=== PATIENT | male | born 1950 | race Caucasian/White ===

== ENCOUNTER 2022-12-31 05:53 | Inpatient (IN) ==
--- NOTE | 2022-12-23 12:53 | Anesthesiology Consultation ---
Date of Service December 23, 2022 Assessment & Plan (1) Encounter for pre-operative examination: Chart Review Chart Review: Acceptable Risk for Surgery and Patient NOT seen in Pre Admission Testing Consults Requested none History Surgery Operation Date: 12/31/22 08:20 Proposed Procedures p Robotic Laparoscopic Assisted Parital Nephrectomy, Possible Radical - Right - Theo Rossi DO Height/Weight Height: 5 ft 11 in Weight: 81.647 kg Allergies Allergy/AdvReac Type Severity Reaction Status Date / Time No Known Allergies Allergy Verified 12/23/22 11:10 Medications Home Medications Medication Instructions Recorded Confirmed Last Taken ascorbic acid (vitamin C) 500 mg 500 mg PO QAM 12/23/22 12/23/22 Unknown tablet (Vitamin C) fluvoxamine 50 mg tablet 50 mg PO QAM 12/23/22 12/23/22 Unknown lorazepam 0.5 mg tablet 0.5 mg PO TID PRN Anxiety 12/23/22 12/23/22 Unknown multivitamin 1 tab PO QAM 12/23/22 12/23/22 Unknown rosuvastatin 20 mg sprinkle capsule 20 mg PO QAM 12/23/22 12/23/22 Unknown Past Medical History Medical History Anxiety Hearing loss in right ear Hyperlipidemia OCD (obsessive compulsive disorder) Wears hearing aid in left ear Past Surgical History Surgical History History of cardiac cath 20 yr ago- "strange feeling in chest", "30% blockage that did not require intervention" at [place] by Dr. Castillo, started statin, no issues since History of cataract surgery bilateral History of colonoscopy History of herniorrhaphy left inguinal History of tonsillectomy S/P excision of acoustic neuroma 2019, [facility], lost hearing in R ear S/P vasectomy Social History Smoking Status: Never smoker Do You Dip or Chew Tobacco: No Hx Alcohol Use: No Hx Substance Use: No substance use type: does not use Testing Electrocardiogram Date: 11/26/22 Findings: + NSR @ (bradycardia)
[2022-12-31] MEDS ORDERED: ceFAZolin 2000MG 2,000 MG/15 ML SYR IV SCH (06:00)
[2022-12-31] MEDS ORDERED: LACTATED RINGER'S 1,000 ML IV SCH (06:00)
--- NOTE | 2022-12-31 06:42 | History & Physical Bridge Note ---
Date of Service December 31, 2022 History & Physical Bridge Note I have examined the patient, reviewed the History & Physical and in the interval since the performance of the History & Physical I have noted the following changes of clinical significance: no changes noted
[2022-12-31] MEDS ORDERED: ATROPINE SULFATE 0.1 MG/ML 10ML SYR IV PRN (06:51)
[2022-12-31] MEDS ORDERED: ePHEDrine sulfate 50 MG/ML AMP IV PRN (06:51)
[2022-12-31] MEDS ORDERED: LIDOCAINE 2% 2 ML VIAL/AMP(20MG/ML) INFIL ONE (07:01)
[2022-12-31] MEDS ORDERED: PROPOFOL IV EMULSION 10 MG/ML 20 ML VIAL IV ONE (07:01)
[2022-12-31] MEDS ORDERED: SUGAMMADEX SODIUM 200 MG/2 ML VIAL IV ONE (07:01)
[2022-12-31] MEDS ORDERED: ROCURONIUM BROMIDE 10 MG/ML 5 ML VIAL IV ONE (07:01)
[2022-12-31] MEDS ORDERED: MIDAZOLAM HCL 1 MG/ML 2ML VIAL ONE (07:01)
[2022-12-31] MEDS ORDERED: DEXAMETHASONE SOD INJ 4 MG/ML VIAL ONE (07:01)
[2022-12-31] MEDS ORDERED: ONDANSETRON INJ 2 MG/ML 2 ML VIAL ONE (07:01)
[2022-12-31] MEDS ORDERED: fentaNYL citrate PF 100 MCG/2 ML VIAL ONE (07:01)
[2022-12-31] MEDS ORDERED: BUPIVACAINE 0.5 % 5 MG/1 ML MPF 30ML VIAL ONE (07:26)
[2022-12-31] MEDS ORDERED: KETAMINE 50 MG/5 ML SYRINGE ONE (07:37)
[2022-12-31] MEDS ORDERED: TISSEEL FIBRIN SEALANT 10ML TOP ONE (08:50)
[2022-12-31] MEDS ORDERED: SURGICEL ABSORB HEMOSTAT 2IN X 14IN TOP ONE (08:50)
[2022-12-31] MEDS ORDERED: FLOSEAL HEMOSTATIC MATRIX 10ML TOP ONE (08:50)
--- NOTE | 2022-12-31 10:22 | Operative Report ---
PG Post Operative Report Pre & Post Diagnosis Operation Date: 12/31/22 07:30 Pre-Op Diagnosis: Right Renal Mass Post-Op Diagnosis: Right Renal Mass I identified the patient and participated in the time-out.: Yes Procedure Operation Date: 12/31/22 07:30 Actual Procedures p Robotic Assisted Laparoscopic Right Nephrectomy - Theo Rossi DO Surgeon Theo Rossi, II, DO Acid Operator TAMMY Chapman Estimated Blood Loss 100 Findings Consistent with Post-Op Diagnosis Moderate size tumor of the renal pelvis/renal mass. Numerous accessory vessels with tumor in close proximity to vessels. Specimens Right Radical Kidney Drains 18 Fr Uriarte Anesthesia Type General Complications none Disposition Disposition: Recovery Room Indications Patient with right renal mass suspicious for malignancy. Risks and benefits discussed at length. Description of Procedure The patient was brought to the operative suite and placed under general endotracheal intubation anesthesia in the supine position. The patient was transferred to lateral position with the right flank exposed. The patient was placed into a flex'ed position and then placed into mild reverse Trendelenberg. At this point, the patient prepped and draped in the usual sterile fashion and a timeout was completed. Preoperative weight based antibiotics had been given. SIL's and SCD's were placed on the patient's lower extremities. A catheter was placed by nursing using sterile technique. With the time out completed the patient was flexed and the skin was marked. The port site was anesthetized. A small incision was made into the skin and subcutaneous tissues. A Varess needle was selected and placed. The needle was easily moved and it was irrigated and aspirated without any issues or concerns for placement. Insufflation commenced. The 8 mm camera port was placed. The abdominal cavity was further insufflated. The laparoscopic camera was placed and the abdominal cavity inspected. No concerning features were noted. At this point, the skin was marked for port placement and 8mm working ports were placed. The skin was anesthetized down to fascia and an approx 1cm incision was made to place the 2 x 8mm ports and the 1 x 12 mm port. One 12 mm assistant manager/embalmer ports were also placed in similar fashion under direct visualization. The robot was positioned and docked. The camera was placed and all trocars were positioned under direct visualization. Mary Chapman was integral in port placement, camera utilization, and docking procedure. She remained in sterile attire and then proceeded to assist the remainder of the case. The colon was mobilized medially to expose the retroperitoneum and the area assessed. Adhesions were freed to allow mobilization. A small amount of further adhesions were noted from the colon and were freed. These were dissected with blunt technique. Cautery was used to assist dissection and control bleeding. The retroperitoneal fat was assessed. Starting distally the retroperitoneum was dissected and care was taken to dissect down near the IVC. The gonadal vein and ureter were identified. This was then followed superiorly. Dissection stayed toward the midline along the IVC and the ureter and gonadal vein were followed up towards the renal hilum. The dissection was followed to the renal pelvis. The Renal Vein was identified and exposed. Posteriorly and inferiorly a number of accessory/additional small vessels were noted going to the hilum. hemolock clips were used for larger vessels. Dissection was taken further superior. The Renal Artery and Vein were then cleaned and exposed. The tumor was identified within the hilum and had very close proximity to the vessels and structures. Numerous small vessels appeared to enter the mass directly. The perirenal fat near the mass was thickened and edematous. The mass and surrounding tissues were assessed. Due to location and the proximity to the vessels the mass did not appear to be amendable to partial nephrectomy. At this point it was decided to remove the entire kidney to allow complete control of the mass. The kidney was then further mobilized. The Vessels were assessed a final time. The Laparoscopic stapling device was selected with two vascular loads. The artery followed by the vein were ligated, stapled, and lysed. The stumps were assessed and no bleeding or major injury or concern. The kidney was then completely freed and mobilized. The lateral and superior connects were dissected. The kidney was completely freed. An additional staple load was then used to cut and staple the ureter and the inferior connections. Surgicel hemostatic agent sheets were placed over the vessels and on the wound bed. Hemostatic agents Tisseel and Floseal were also placed. Hemostatic agent was also placed on the vessels. No major bleeding or other issues. The entire dissection space was inspected one final time. No bleeding or injuries or areas of concern were noted. No tumor or other concerning features were noted. At this point, the robot was undocked and moved away from the patient. The port sites were all assessed laparoscopically. The assistant manager/embalmer 12 mm port site was closed with the Luis-Shepherd device and were closed with Vicryl suture. The other ports were assessed and no issues observed. The inferior robotic port was opened further in the right lower quadrant exposing fascia which was then opened in order to removed the entire kidney en bloc. The abdomen was inspected a final time. A 2-0 Vicryl suture was used to close the peritoneum and posterior sheath. A 1-0 PDS suture was used to close fascia. The skin at each site was closed with kevin. The area was cleaned and bandages placed on each incision. The patient was cleaned and bandaged. The patient was moved back into the supine position The patient was cleaned, aroused from anesthesia, and transferred to the pacu in stable condition having tolerated the procedure well with no complications. I was present and participated in all aspects of the procedure. TAMMY Cerrato was critical in the portions as mentioned above. I attest to the content of the Intraoperative Record and any orders documented therein. Any exceptions are noted below.
[2022-12-31] MEDS: HYDROmorphone INJ 2 MG/ML SYR/VIAL IV PRN ×4 (10:40→11:02)
--- NOTE | 2022-12-31 10:40 | XRay Report ---
INTRAOPERATIVE LEFT LATERAL DECUBITUS RADIOGRAPH CLINICAL HISTORY: INSTRUMENT COUNT COMPARISON STUDY: Renal ultrasound December 08, 2022. FINDINGS: No unexpected radiopaque foreign bodies are identified following right nephrectomy. Please note that the entire abdomen was not included on this exam however the operative bed was imaged. Extr aluminal gas is noted, as expected. IMPRESSION: No unexpected radiopaque foreign bodies within the operative bed. ACT 112: Negative or not required by law. Electronically signed by: Ady Dejesus M.D. 12/31/2022 10:38 AM
[2022-12-31 10:52] LABS: Basophils # (auto) 0.02 K/uL (0.00-0.20); Basophils % (auto) 0.2 %; Eosinophils # (auto) 0.06 K/uL (0.00-0.50); Eosinophils % (auto) 0.7 %; Hemoglobin 12.7 g/dl (14.0-18.0); Immature Granulocytes # (auto) 0.05 K/uL (0.01-0.20); Immature Granulocytes % (auto) 0.6 %; Lymphocytes # (auto) 0.64 K/uL (1.20-3.40); Lymphocytes % (auto) 7.7 %; Mean Corpuscular Hemoglobin 32.4 pg (25.0-34.0); Mean Corpuscular Hgb Conc 34.3 g/dL (32.0-36.0); Mean Corpuscular Volume 94.4 fL (80.0-100.0); Monocytes # (auto) 0.15 K/uL (0.11-0.59); Monocytes % (auto) 1.8 %; Neutrophils # (auto) 7.37 K/uL (1.40-6.50); Platelet Count 148 K/uL (130-400); RDW Coefficient of Variation 11.8 % (11.5-14.5); RDW Standard Deviation 40.2 fL (36.4-46.3); Red Blood Count 3.92 M/uL (4.70-6.10); White Blood Count 8.29 K/ul (4.8-10.8)
--- NOTE | 2022-12-31 11:04 | Anesthesiology Progress Note ---
Date of Service December 31, 2022 Anesthesia Post Procedure Vital Signs Vital Signs: Temp Pulse Resp BP Pulse Ox O2 Del Method O2 Flow Rate 12/31/22 10:55 62 12 157/87 H 98 Nasal Cannula 3 12/31/22 10:45 69 12 145/84 H 98 Nasal Cannula 3 12/31/22 10:35 73 12 143/86 H 100 Oxymask 10 12/31/22 10:25 73 16 166/82 H 100 Oxymask 10 12/31/22 10:19 36.0 C L 75 18 163/88 H 100 Oxymask 10 12/31/22 06:29 36.8 C 66 20 155/92 H 98 Room Air Pain Intensity Abdomen: Pain Intensity: 6 Transfer of Care Handoff Completed per policy Notes Mental Status: alert / awake / arousable Patient Amnestic to Procedure: Yes Nausea / Vomiting: adequately controlled Pain: adequately controlled Airway Patency, RR, SpO2: stable & adequate BP & HR: stable & adequate Hydration State: stable & adequate Anesthetic Complications: no major complications apparent and Pt Satisfied with anesthetic care
[2022-12-31 11:16] LABS: BUN Creatinine Ratio 11.2 (10-20); Calcium 8.4 mg/dl (8.6-10.3); Creatinine Clr Calc Pharmacy 61.3 ml/min; Est GFR (African American) 72.5 ml/min; Est GFR (Non-African American) 62.6 ml/min; Potassium 4.2 mmol/L (3.5-5.1)
[2022-12-31] MEDS ORDERED: MoRPHine SULFATE 2 MG/ML CARP IV PRN (12:27)
[2022-12-31] MEDS ORDERED: LORazepam 0.5 MG TAB PO PRN (12:27)
[2022-12-31] MEDS ORDERED: MoRPHine SULFATE 4 MG/ML 1 ML CARP\\VIAL IV PRN (12:27)
[2022-12-31] MEDS ORDERED: ONDANSETRON INJ 2 MG/ML 2 ML VIAL IV PRN (12:27)
[2022-12-31] MEDS ORDERED: oxyCODONE HCL IR 5 MG TAB (IMMEDIATE RELEASE) PO PRN ×2 (12:27)
[2022-12-31] MEDS: LACTATED RINGER'S 1,000 ML IV SCH ×2 (13:03→22:41)
[2022-12-31] MEDS: ACETAMINOPHEN 325 MG TAB PO PRN ×2 (14:43→21:03)
[2022-12-31] MEDS: ceFAZolin 2000MG 2,000 MG/15 ML SYR IV SCH ×2 (15:47→23:42)
[2022-12-31] MEDS: DOCUSATE SODIUM 100 MG CAP PO SCH (21:04)
[2022-12-31] MEDS: HEPARIN SOD 5,000 UNIT/0.5 ML VIAL SQ SCH (21:05)
[2023-01-01] MEDS: ACETAMINOPHEN 325 MG TAB PO PRN ×3 (02:57→16:03)
--- NOTE | 2023-01-01 08:47 | Urology Progress Note ---
Date of Service January 01, 2023 Assessment & Plan (1) Renal mass: Plan - POD #1 s/p Robotic Assisted Laparoscopic Right Nephrectomyfor possible renal malignancy. - Feeling well, progressing as expected. - Afebrile, hemodynamically stable. - Labs reviewed -WBC 13.50, hemoglobin 12.1, creatinine up to 1.68 as expected s/p nephrectomy. - Tolerating clears. - Minimal pain, managing with Tylenol. - Discontinue IV fluids, encourage hydration. - Remove Uriarte catheter and monitor for void. - Encourage ambulation. - Advance diet as tolerated. - Continue supportive care and pain management. - Anticipate discharge to home later today or tomorrow pending patient progression. Plan of care discussed with Dr. Rossi. Admission and Anticipated Discharge Date Admission Date: December 31, 2022 Subjective Patient examined at bedside this AM. Awake, resting in bed on arrival. No acute distress. No acute issues overnight. Uriarte intact, draining clear yellow urine. Reports minimal pain, managing with Tylenol. Incisions appropriate. Tolerating clears. He does report feeling a little bloated this morning, no nausea or vomiting. No fevers or chills. Some belching, no flatus. Ambulated yesterday without issue. Review of Systems Constitutional: as per Subjective / HPI Gastrointestinal: as per Subjective / HPI Genitourinary: + as per Subjective / HPI Physical Exam Constitutional: well developed and well nourished; no acute distress Respiratory: normal respiratory effort; no respiratory distress and no labored breathing Gastrointestinal (Abdomen): Percussion/Palpation: abdomen soft; abdomen nontender Incisions appropriate, kevin intact. Musculoskeletal: Head/Neck/Chest: normocephalic Skin: No visible rashes or lesions to exposed skin areas Neurologic: moves all extremities and awake Psychiatric: A+Ox3, euthymic affect Genitourinary: Uriarte intact, urine is clear yellow Results & Data Vital Signs (Past 12 Hours) Vital Signs Temp Pulse Resp BP Pulse Ox O2 Del Method 01/01/23 07:15 36.7 C 73 16 164/88 H 96 Room Air 01/01/23 04:00 36.7 C 76 18 162/79 H 96 Room Air 12/31/22 21:00 36.7 C 72 18 165/95 H 96 Room Air PG Care Time/CCT Total # of Minutes Spent Total Time Spent with Patient: Total time spent is greater than 50% in coordination of care (as documented) at patient's floor/unit and/or counseling patient: Coding Level of Care Code None Diagnoses Renal mass N28.89
[2023-01-01 08:53] LABS: Basophils # (auto) 0.01 K/uL (0.00-0.20); Basophils % (auto) 0.1 %; Hematocrit (blood only) 34.9 % (42.0-52.0); Hemoglobin 12.1 g/dl (14.0-18.0); Immature Granulocytes # (auto) 0.11 K/uL (0.01-0.20); Immature Granulocytes % (auto) 0.8 %; Lymphocytes # (auto) 0.61 K/uL (1.20-3.40); Lymphocytes % (auto) 4.5 %; Mean Corpuscular Hemoglobin 32.2 pg (25.0-34.0); Mean Corpuscular Hgb Conc 34.7 g/dL (32.0-36.0); Mean Corpuscular Volume 92.8 fL (80.0-100.0); Mean Platelet Volume 10.3 fL (9.4-12.4); Monocytes # (auto) 1.09 K/uL (0.11-0.59); Monocytes % (auto) 8.1 %; Neutrophils # (auto) 11.68 K/uL (1.40-6.50); Neutrophils % (auto) 86.5 %; Platelet Count 162 K/uL (130-400); Red Blood Count 3.76 M/uL (4.70-6.10)
[2023-01-01] MEDS ORDERED: fluvoxaMINE MALEATE 50 MG TAB PO SCH (09:00)
[2023-01-01] MEDS ORDERED: ROSUVASTATIN CALCIUM 20 MG TAB PO SCH (09:00)
[2023-01-01 09:20] LABS: BUN Creatinine Ratio 13.1 (10-20); Creatinine Clr Calc Pharmacy 42.3 ml/min; Est GFR (African American) 46.3 ml/min; Potassium 4.9 mmol/L (3.5-5.1)
[2023-01-01] MEDS: DOCUSATE SODIUM 100 MG CAP PO SCH (09:36)
[2023-01-01] MEDS: HEPARIN SOD 5,000 UNIT/0.5 ML VIAL SQ SCH (09:39)
[2023-01-01] MEDS: LACTATED RINGER'S 1,000 ML IV SCH (10:17)
--- NOTE | 2023-01-01 14:58 | Discharge Summary ---
Date of Service January 01, 2023 Admission HPI Per Admitting Provider 72-year-old male with a right renal mass admitted for right robotic assisted laparoscopic partial versus radical nephrectomy Admission Exam Per Admitting Provider General: Alert in no acute distress. HEENT: Inspection normal Psychologic: Normal affect. Respiratory: Nonlabored. No use of accessory muscles. Skin: Minor and Dry. No rashes or visible lesions. Abdomen: Soft, nontender Principal Diagnosis Right renal mass Discharge Exam Constitutional well developed and well nourished; no acute distress Respiratory normal respiratory effort; no respiratory distress and no labored breathing Gastrointestinal (Abdomen) Percussion/Palpation: abdomen soft; abdomen nontender Incisions appropriate, kevin intact Musculoskeletal Head/Neck/Chest: normocephalic Neurologic moves all extremities and awake Psychiatric A+Ox3, euthymic affect Genitourinary Urine is clear yellow Discharge Data Allergies Allergy/AdvReac Type Severity Reaction Status Date / Time No Known Allergies Allergy Verified 12/31/22 06:25 Procedures Performed Operation Date: 12/31/22 07:30 Actual Procedures p Robotic Assisted Laparoscopic Right Nephrectomy(Right) - Theo Rossi, Hospital Course (1) Renal mass: Plan 72 year old male admitted s/p Robotic Assisted Laparoscopic Right Nephrectomyfor possible renal malignancy with Dr. Rossi. Patient tolerated procedure well. No acute issues postoperatively. Remained afebrile and hemodynamically stable. Postop day #1 labs showing a WBC 13.50, hemoglobin 12.1, creatinine up to 1.68 as expected s/p nephrectomy. Tolerated diet. Ambulated without issue. Reported minimal pain. Incisions were appropriate. Patient passed a voiding trial on postop day #1. BP running 160-170s. Patient felt related to anxiety. Patient/ will monitor BP closely at home and contact PCP with any issues/concerns. He was subsequently discharged home. He was in stable condition at time of discharge. Discharge instructions were reviewed, all questions were answered. Worrisome signs/symptoms were discussed. Return ER criteria reviewed. Postoperative follow-up appointment in place. Total Time Total Time Spent Total Time Spent (In Minutes): 15 Discharge Plan Discharge Items Patient Disposition: Home - Self-Care Reason For Visit: Renal Mass Discharge Diagnosis: Renal Mass Activity: Per Instructions section Lifting: No more than 10 pounds Bathing Comment: Ok to shower. No tub baths or soaks. Sexual Activity: Wait until after follow-up appointment Exercise/Sports: Wait until after follow-up appointment Driving/Machine Use: Do not drive if taking prescription pain medication. Non-emergency contact: Surgeon and Urologist Call non-emergency contact if: you have any medication questions, your pain is not controlled, your pain is worsening, you have a fever, your wound has increased redness, your wound has increased drainage and your wound pain has increased Follow-up/Referrals: Theo Rossi DO [Physician] - 01/06/23 1:30 pm Biju Guaman MD [Primary Care Provider] - Diet: Regular Addtl Attending Provider Instructions: Please take all medications as prescribed and keep all follow-ups as scheduled. Please call our office at [phone] with any questions, concerns or need to reschedule appointments for any reason. We are happy to assist you. Oxycodone as needed for pain and Colace (stool softener) were sent to your pharmacy. Please take as directed. Recovering at home: We recommend having someone with you for the first few days after surgery to help care for you. It is okay to shower tomorrow. Please avoid swimming, bathing or using hot tub until incisions are well healed. Avoid driving until you are not requiring pain medication any further. Walk at least a few times a day. Increase your distance, as you feel able. Stairs in your home are okay. Please avoid strenuous or sexual activity until your follow-up. We recommend using stool softener (i.e. Colace) to prevent constipation and straining, especially the first two weeks post operatively. Call [facility] at [phone] if you experience: Chest pain or trouble breathing (call 636 or go to the hospital). Fever of 101F or higher Symptoms of infection at incision site, including redness or swelling, warmth, or bad-smelling drainage Pain that is not controlled with medicines Unable to urinate Pending Studies at Discharge: Yes (pathology) Stand-Alone Forms: My [employer], Smoking Cessation Medications and DC Order Prescriptions: New docusate sodium [Colace] 100 mg capsule 100 mg PO BID Qty: 30 0RF Rx Instructions: Take twice daily for 2 weeks, then as needed thereafter oxycodone 5 mg tablet 5 mg PO Q8H PRN (Reason: pain) Qty: 7 0RF Continued multivitamin Tablet 1 tab PO QAM lorazepam 0.5 mg Tablet 0.5 mg PO TID PRN (Reason: Anxiety) ascorbic acid (vitamin C) [Vitamin C] 500 mg Tablet 500 mg PO QAM fluvoxamine 50 mg Tablet 50 mg PO QAM rosuvastatin 20 mg Capsule, Sprinkle 20 mg PO QAM Discharge Orders: Discharge Order (Routine); Ordered 01/01/23 Ordered By: Mary Davenport/Other Patient Handouts: ED Tumor, Uncertain Cause Admission Data Admit Date/Time: 12/31/22 10:15 Attending Provider: Theo Rossi Admit Provider: Theo Rossi Primary Care Provider: Biju Guaman Other Interventions: Discharge Summary Assessment (RN) Last Done: 01/01/23 15:37 Coding Level of Care Code 94403 IN/OBS DISCH 30 MIN/LESS Diagnoses Renal mass N28.89
--- NOTE | 2023-01-11 05:46 | Coding Query ---
PATHOLOGY To promote full compliance with coding requirements relating to patient care, physician participation is requested in all cases of paper core machine operator uncertainty. Please assist us with the question(s) below: Please review the Pathology report and please document any relevant diagnosis(es) below: Diagnosis(es): Renal Cell Carcinoma. Thank you JUHI Chamorro [facility]ENTERApril
== END 2023-01-01 15:50 | disposition home or self-care (01) | DRG 658 ==
LOC: ASU 05:53 → PACUINP 10:15 → 3W 12:24